=== PATIENT | male | born 1955 | race Caucasian/White ===

== ENCOUNTER 2017-08-19 17:06 | Observation (INO) | payer BC, OTHER ==
--- NOTE | 2017-08-19 17:20 | EDPHY ---
H & P Stated Complaint: RLQ ABD PAIN Time Seen by Provider: 08/19/17 17:20 - Personal History Current Tetanus/Diphtheria Vaccine: Yes - Medical/Surgical History Hx Asthma: No Hx Chronic Respiratory Disease: No Hx Diabetes: No Hx Cardiac Disease: No Hx Renal Disease: No Hx Cirrhosis: No Hx Alcoholism: No Hx HIV/AIDS: No Hx Splenectomy or Spleen Trauma: No Other PMH: none - Social History Smoking Status: Never smoked Constitutional: Initial Vital Signs Temperature (C) 36.3 C 08/19/17 17:08 Heart Rate 122 H 08/19/17 17:08 Respiratory Rate 20 08/19/17 17:08 Blood Pressure 99/73 L 08/19/17 17:08 O2 Sat (%) 97 08/19/17 17:08 O2 Delivery Mode Room Air Allergies/Adverse Reactions: No Known Allergies Allergy (Verified 08/19/17 17:07) Home Medications: Medication Instructions Recorded NK [No Known Home Meds] 05/13/13 Medical Decision Making - Diagnostics Imaging: Discussed imaging studies w/ workers compensation coordinator Radiologist, I viewed and interpreted images myself ED Course/Re-evaluation: CHIEF COMPLAINT: Right lower quadrant abdominal pain HISTORY OF PRESENT ILLNESS: Healthy 62-year-old gentleman who this morning developed abdominal pain. The pain localized to his right lower quadrant throughout the day. He has thrown up twice. He has nausea. It hurts to move around laugh or walk. He denies any abdominal surgeries. Last p. O. This afternoon but he vomited twice since then. He denies fevers chills or systemic illness. He has never had symptoms like this before. REVIEW OF SYSTEMS: A 10 point review of systems was performed and is negative with the exception of the elements mentioned in the history of present illness. PHYSICAL EXAM: HR, BP, O2 Sat, RR. Temp noted General Appearance: Alert, well hydrated, appropriate, and non-toxic appearing. Head: Atraumatic without scalp tenderness or obvious injury Eyes: Pupils equal, round, reactive to light and accommodation, EOMI, no trauma , no injection. Ears: Clear bilaterally, no perforation, normal landmarks Nose: Atraumatic, no rhinorrhea, clear. Throat: There is no erythema or exudates, no lesions, normal tonsils, mucus membranes moist. Neck: Supple, 2+ carotid upstroke, nontender, no lymphadenopathy. Respiratory: No retractions, no distress, no wheezes, and no accessory muscle use. Lungs are clear to auscultation bilaterally. Cardiovascular: Regular rate and rhythm, no murmurs, rubs, or gallops. Bilateral carotid, radial, dorsalis pedis, and posterior tibial pulses intact. Good capillary refill all extremities. Gastrointestinal: Abdomen is soft, significant tenderness in the right lower quadrant at McBurney's point, non-distended, no masses, no rebound, no guarding , no peritoneal signs. Musculoskeletal: Normal active ROM of all extremities, atraumatic. Neurological: Alert, appropriate, and interactive. The patient has normal DTRs and non-focal cranial nerves, motor, sensory, and cerebellar exam. Skin: No rashes, good turgor, no nodules on palpation. Past medical history: None Past surgical history: Patient denies Family history: Noncontributory Social history: Employed, does not abuse tobacco drugs or alcohol, DIAGNOSTICS/PROCEDURES/CRITICAL CARE TIME: Study: [CT of the abdomen and pelvis with IV contrast] Indication: [Right lower quadrant abdominal pain nausea vomiting] Results: CT scan of the abdomen pelvis was obtained. The results of the study are acute appendicitis. The study was read by the radiologist, []. I viewed the images myself on the PACS system. DIFFERENTIAL DIAGNOSIS: The differential diagnosis for the patient's abdominal pain included but was not limited to [appendicitis, cholecystitis, hernias, testicular torsion, gastritis, and urinary tract infection.] MEDICAL DECISION MAKING: This patient as significant right lower quadrant tenderness nausea and vomiting. The pain started as generalized abdominal pain and progressed in intensity. The pain also moved to the right lower quadrant is not localized there. Laboratory studies including CBC, chemistry panel are pending. Additionally I am checking an I-STAT to check his creatinine to perform a contrast CT scan of his abdomen pelvis. CT shows acute appendicitis. 1gm Rocephin and 500mg IV Flagyl ordered. Surgery paged. - Data Points Laboratory Results: Laboratory Results 08/19/17 17:31 18 17:31 18 08/19/17 08/19/17 17:40 17:31 17:31 WBC 14.12 10^3/uL H 10^3/uL (3.80-9.50) RBC 4.74 10^6/uL 10^6/uL (4.40-6.38) Hgb 14.9 g/dL g/dL (13.7-17.5) POC Hgb 15.6 gm/dL gm/dL (13.7-17.5) Hct 42.2 % % (40.0-51.0) POC Hct 46 % % (40-51) MCV 89.0 fL fL (81.5-99.8) MCH 31.4 pg pg (27.9-34.1) MCHC 35.3 g/dL g/dL (32.4-36.7) RDW 14.0 % % (11.5-15.2) Plt Count 310 10^3/uL 10^3/uL (150-400) MPV 10.0 fL fL (8.7-11.7) Neut % (Auto) Not Reported Lymph % (Auto) Not Reported [place] % (Auto) Not Reported Eos % (Auto) Not Reported Baso % (Auto) Not Reported Nucleat RBC Rel Count Not Reported Absolute Neuts (auto) Not Reported Absolute Lymphs (auto) Not Reported Absolute Monos (auto) Not Reported Absolute Eos (auto) Not Reported Absolute Basos (auto) Not Reported Absolute Nucleated RBC Not Reported Immature Gran % Not Reported Seg Neutrophils % 83.8 % % Band Neutrophils % 8.1 % % Lymphocytes % 2.0 % % Monocytes % 6.1 % % Eosinophils % 0 % % Basophils % 0 % % Metamyelocytes % 0 % % Myelocytes % 0 % % Promyelocytes % 0 % % Blast Cells % 0 % % Immature Gran # Not Reported Absolute Seg Neuts 11.83 10^/uL H 10^/uL (1.70-6.50) Absolute Band Neuts 1.14 10^3/uL H 10^3/uL (0.00-0.70) Absolute Lymphocytes 0.28 10^3/uL L 10^3/uL (1.00-3.00) Absolute Monocytes 0.86 10^3/uL H 10^3/uL (0.30-0.80) Absolute Eosinophils 0.00 10^3/uL L 10^3/uL (0.03-0.40) Absolute Basophils 0.00 10^3/uL L 10^3/uL (0.02-0.10) Absolute Metamyelocyte 0.00 10^3/mL 10^3/mL (0.00-0.00) Absolute Myelocytes 0.00 10^3/mL 10^3/mL (0.00-0.00) Absolute Promyelocytes 0.00 10^3/uL 10^3/uL (0.00-0.00) Absolute Plasma Cells 0.00 10^3/uL 10^3/uL (0.00-0.00) RBC/WBC/PLT Morphology NORMAL (NORMAL) Absolute Blast Cells 0.00 10^3/uL 10^3/uL (0.00-0.00) Plasma Cells % 0 % % Platelet Estimate ADEQUATE (ADEQ) POC Sodium 136 mEq/L mEq/L (135-145) Sodium 137 mEq/L mEq/L (135-145) POC Potassium 3.7 mEq/L mEq/L (3.3-5.0) Potassium 4.1 mEq/L mEq/L (3.3-5.0) POC Chloride 103 mEq/L mEq/L (97-110) Chloride 102 mEq/L mEq/L (97-110) Carbon Dioxide 18 mEq/l L mEq/l (22-31) Anion Gap 17 mEq/L H mEq/L (8-16) POC BUN 15 mg/dL mg/dL (7-23) BUN 15 mg/dL mg/dL (7-23) Creatinine 0.8 mg/dL mg/dL (0.7-1.3) POC Creatinine 0.9 mg/dL mg/dL (0.7-1.3) Estimated GFR > 60 Glucose 104 mg/dL H mg/dL (70-100) POC Glucose 114 mg/dL H mg/dL (70-100) Calcium 9.9 mg/dL mg/dL (8.5-10.4) Total Bilirubin 0.8 mg/dL mg/dL (0.1-1.4) Conjugated Bilirubin 0.3 mg/dL mg/dL (0.0-0.5) Unconjugated Bilirubin 0.5 mg/dL mg/dL (0.0-1.1) AST 24 IU/L IU/L (17-59) ALT 42 IU/L IU/L (21-72) Alkaline Phosphatase 60 IU/L IU/L (38-126) Total Protein 7.7 g/dL g/dL (6.3-8.2) Albumin 4.6 g/dL g/dL (3.5-5.0) Lipase 67 IU/L IU/L (23-300) Medications Given: Discontinued Medications Sodium Chloride (Ns) 1,000 mls @ 0 mls/hr IV EDNOW ONE; Wide Open PRN Reason: Protocol Stop: 08/19/17 17:24 Last Admin: 08/19/17 17:44 Dose: 1,000 mls Point of Care Test Results: 08/19/17 17:40 POC Sodium 136 POC Potassium 3.7 POC Chloride 103 POC BUN 15 POC Creatinine 0.9 POC Glucose 114 H Departure - Departure Disposition: [facility] Inpatient Acute Clinical Impression: Acute appendicitis Qualifiers: Acute appendicitis type: with localized peritonitis Qualified Code(s): K35.3 - Acute appendicitis with localized peritonitis Condition: Fair Referrals: JAYLENE GUERRA [Other] - As per Instructions
[2017-08-19] MEDS ORDERED: NS 1,000 ML IV ONE (17:23)
[2017-08-19] MEDS ORDERED: ONDANSETRON 4 MG/2 ML VIAL IVP ONE (17:23)
[2017-08-19] MEDS ORDERED: HYDROmorphONE/DILAUDID 2 MG/ML INJ IVP ONE (17:23)
[2017-08-19 17:49] LABS: PLATELET COUNT 310 10^3/uL (150-400)
[2017-08-19] MEDS ORDERED: IOPAMIDOL (ISOVUE-300) 100 ML BTL ONE (18:12)
[2017-08-19] MEDS ORDERED: LR 1,000 ML IV ONE (19:31)
[2017-08-19] MEDS ORDERED: BUPIVACAINE 0.5% 30 ML SDV ONE (19:37)
[2017-08-19] MEDS ORDERED: EPINEPHrine 1 MG/ML INJ ONE (19:38)
--- NOTE | 2017-08-19 19:56 | POSTOPPROG ---
Post Op Note Date of Operation: 08/19/17 Surgeon: Gregorio Almazan Anesthesiologist: Martín Briones Anesthesia: GET(General Endotracheal) Pre-op Diagnosis: Acute Appy, Umby Post-op Diagnosis: Same Procedure: Lap appy with umby Findings: necrotizing appy, small umby Inf/Abcess present in the surg proc area at time of surgery?: Yes Depth: Organ Space EBL: Minimal Specimen(s): appendix
[2017-08-19] MEDS ORDERED: MIDAZOLAM 2 MG/2 ML VIAL ONE (20:00)
[2017-08-19] MEDS ORDERED: MIDAZOLAM 2 MG/2 ML VIAL IVP ONE (20:02)
--- NOTE | 2017-08-19 20:03 | PDANEPAE ---
ANE Past Medical History - Cardiovascular History Hx Hypertension: No Hx Arrhythmias: No Hx Chest Pain: No Hx Coronary Artery / Peripheral Vascular Disease: Yes Hx CHF / Valvular Disease: No Hx Palpitations: No Cardiovascular History Comment: White coat HTN, mild to moderate CAD - Pulmonary History Hx COPD: No Hx Asthma/Reactive Airway Disease: No Hx Recent Upper Respiratory Infection: No Hx Oxygen in Use at Home: No - Neurologic History Hx Cerebrovascular Accident: No Hx Seizures: No Hx Dementia: No - Endocrine History Hx Diabetes: No Endocrine History Comment: Familial history - Renal History Hx Renal Disorders: No - Liver History Hx Hepatic Disorders: No - Neurological & Psychiatric Hx Hx Neurological and Psychiatric Disorders: No - Cancer History Hx Cancer: No Cancer History Comment: Brother- Prostate CA, Mother- pancreatic cancer - Congenital Disorder History Hx Congenital Disorders: No - GI History Hx Gastrointestinal Disorders: Yes Gastrointestinal History Comment: Gluten allergy - Surgical History Prior Surgeries: Tonsilectomy- 1990, Vasectomy- 1988 ANE Review of Systems Review of Systems: - Exercise capacity METS (RN): 4 METS ANE Patient History - Allergies Allergies/Adverse Reactions: gluten Allergy (Verified 08/19/17 19:48) - Home Medications Home Medications: Coq-10 DAILY 08/19/17 [Last Taken 08/19/17] Magnesium Amino Acid Chelate [Magnesium] 100 mg PO DAILY 08/19/17 [Last Taken ] - NPO status NPO Since - Liquids (Date): 08/19/17 NPO Since - Liquids (Time): 15:00 NPO Since - Solids (Date): 08/19/17 NPO Since - Solids (Time): 10:00 - Anes Hx Anes Hx: no prior problems - Smoking Hx Smoking Status: Never smoked - Alcohol Use Alcohol Use: 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; sober for weeks.) - Family Anes Hx Family Hx Anesthesia Complications: None ANE Labs/Vital Signs - Labs Result Diagrams: 08/19/17 17:31 08/19/17 17:31 - Vital Signs Blood Pressure: 127/87 Heart Rate: 109 Respiratory Rate: 18 O2 Sat (%): 96 Height: 172.72 cm Weight: 65.771 kg ANE Physical Exam - Airway Neck exam: FROM Mallampati Score: Class 2 Mouth exam: normal dental/mouth exam - Pulmonary Pulmonary: no respiratory distress, no rales or rhonchi, clear to auscultation - Cardiovascular Cardiovascular: regular rate and rhythym, no murmur, rub, or gallop - ASA Status ASA Status: II ANE Anesthesia Plan Anesthesia Plan: general endotracheal anesthesia
[2017-08-19] MEDS ORDERED: fentaNYL 100 MCG/2 ML INJ ONE (20:13)
[2017-08-19] MEDS ORDERED: PROPOFOL 200 MG/20 ML VIAL ONE (20:13)
[2017-08-19] MEDS ORDERED: SUGAMMADEX SODIUM 200 MG/2 ML VIAL IVP ONE (20:16)
[2017-08-19] MEDS ORDERED: ROCURONIUM 50 MG/5 ML VIAL ONE (20:16)
[2017-08-19] MEDS ORDERED: DEXAMETHASONE 4 MG/ML VIAL ONE ×2 (20:16→20:17)
[2017-08-19] MEDS ORDERED: KETOROLAC 30 MG/1 ML SDV ONE (20:17)
[2017-08-19] MEDS ORDERED: ONDANSETRON 4 MG/2 ML VIAL ONE (20:17)
[2017-08-19] MEDS ORDERED: LIDOCAINE 2% 5 ML SDV ONE (20:22)
[2017-08-19] MEDS ORDERED: MEPERIDINE 25 MG/0.5 ML AMP IVP PRN (20:37)
[2017-08-19] MEDS ORDERED: NALOXONE HCL 0.4 MG/ML INJ IVP PRN (20:37)
[2017-08-19] MEDS ORDERED: LR 500 ML IV PRN (20:37)
[2017-08-19] MEDS ORDERED: ACETAMINOPHEN 500 MG TAB PO PRN (20:37)
[2017-08-19] MEDS ORDERED: PROMETHAZINE HCL 25 MG/ML INJ IVP PRN (20:37)
[2017-08-19] MEDS ORDERED: oxyCODONE IR 5 MG TAB PO PRN (20:37)
[2017-08-19] MEDS ORDERED: fentaNYL 100 MCG/2 ML INJ IVP PRN (20:37)
[2017-08-19] MEDS ORDERED: ONDANSETRON 4 MG/2 ML VIAL IVP PRN (20:37)
--- NOTE | 2017-08-19 20:39 | GHP ---
[f rep st] PREOP HISTORY AND PHYSICAL DATE OF ADMISSION: 08/19/2017 REASON FOR EVALUATION: Appendicitis. REQUESTING PHYSICIAN: Rc Solares MD. HISTORY OF PRESENT ILLNESS: 62-year-old, healthy male with a 1-day history of diffuse abdominal pain with right lower quadrant localization. Associated nausea and emesis. Bowel movements have been soft without diarrhea. No voiding complaints. No prior history of similar complaints. Colonoscopy is up to date 5 years ago. Notable for diverticulosis only. Symptoms continued to worsen throughout the day at work, for which he requested his colleague drive him home because of unrelenting symptoms. He ultimately presented to the emergency room for further workup. ED workup including a CT scan and laboratory studies disclosed a leukocytosis of 14. CT showed evidence of multiple appendicoliths and appendicitis. Surgeon has been requested for further recommendations. PAST MEDICAL HISTORY: Hypertension. PAST SURGICAL HISTORY: None. MEDICATIONS: None. ALLERGIES: No known drug allergies. SOCIAL HISTORY: Notable for prior alcohol. None x7 months. No tobacco. He works as an windows infrastructure engineer for [employer] FAMILY HISTORY: Noncontributory. REVIEW OF SYSTEMS: Notable for above GI complaints only. PHYSICAL EXAMINATION: VITAL SIGNS: Temperature 36.3, blood pressure 100/70, pulse 120 on arrival, respirations 20. GENERAL: The patient is currently alert , appropriate, comfortable with a blood pressure in the 90s after receiving pain analgesics. Anicteric. Flushed in appearance. No cervical or supraclavicular lymphadenopathy. HEART: Regular without murmurs. LUNGS: Clear bilaterally. ABDOMEN: Small reducible umbilical hernia. Soft with significant right-sided tenderness with notable guarding. Negative Rovsing sign. Negative obturator sign. EXTREMITIES: Without edema. SKIN: Without rashes. NEUROLOGIC: Alert and appropriate. LABORATORY DATA: White count 14, hemoglobin 15, platelets 310. Electrolytes within reference range. CT images were directly reviewed on PACS. Notable thickened appendix with multiple appendicoliths. No free air. No abscess. No other significant pathology noted. IMPRESSION: Acute appendicitis, umbilical hernia. PLAN: Laparoscopic appendectomy. Surgical risks and benefits were explained to the patient in detail about bleeding, infection, open conversion, as well as alternative diagnoses. All questions were answered. He desires to proceed. We will proceed with concurrent umbilical herniorrhaphy as well. /[id number]/MODL MTDD
--- NOTE | 2017-08-19 22:04 | POSTANESTH ---
Post Anesthetic Evaluation Cardiovascular Status: Normal, Stable, Similar to Pre-Op Cond Respiratory Status: Normal, Stable, Similar to Pre-op Cond. Level of Consciousness/Mental Status: Can Participate in Eval, Alert and Oriented Pain Control: Adequate, Prn Tx Ordered Nausea/Vomiting Control: Adequate, Prn Tx Ordered Complications Possibly Related to Anesthesia: None Noted
--- NOTE | 2017-08-20 06:59 | SOAPPROG ---
SOAP Progress Note Assessment/Plan: Assessment:no complaints. min pain. no nausea or vomiting. avss. comfortable. abd soft. incis clean. doing well. home today. Plan: 08/20/17 06:58 Objective: Vital Signs Temp Pulse Resp BP Pulse Ox 36.6 C 81 16 105/72 95 08/20/17 01:00 08/20/17 01:00 08/20/17 01:00 08/20/17 01:00 08/20/17 01:00 08/19/17 08/20/17 08/21/17 05:59 05:59 05:59 Intake Total 1525 Output Total 10 Balance 1515 ICD10 Worksheet Patient Problems: Problems Problem Status Onset Acute appendicitis Acute
[2017-08-20 07:23] VITALS: BP 107/65
--- NOTE | 2017-08-20 08:01 | GOP ---
[f rep st] OPERATIVE REPORT DATE OF OPERATION: 08/19/2017 SURGEON: Gregorio Almazan MD ANESTHESIA: General. ANESTHESIOLOGIST: Vinny Briones MD. PREOPERATIVE DIAGNOSIS: 1. Acute appendicitis. 2. Umbilical hernia. POSTOPERATIVE DIAGNOSIS: 1. Acute appendicitis. 2. Umbilical hernia. PROCEDURE PERFORMED: 1. Laparoscopic appendectomy. 2. Umbilical hernia repair. FINDINGS: INDICATIONS: This is a 62-year-old male with acute appendicitis he is undergoing a laparoscopic appe ndectomy. Risks and benefits were explained including bleeding, infection, open conversion, as well as alternative diagnoses. All questions were answered. He desires to proceed. DESCRIPTION OF PROCEDURE: General anesthesia was induced. The abdomen was pre-injected with 0.5% Ma rcaine with epinephrine. A curvilinear infraumbilical incision was created. The umbilical stalk was transected at its fascial expansion. A 1.5 cm umbilical defect was present. A 10 mm trocar was kevan octavio under direct visualization. The abdomen was insufflated to 15 mmHg. Two additional left lower q uadrant 5 mm ports were inserted. The appendix was acutely thickened and necrotizing in appearance. There was no suppuration or perforation. The mesoappendix was divided with Harmonic Scalpel. The b ase was transected flush with the cecum with an endoscopic KENISHA stapler. The specimen was brought thr ough umbilical port site intact using EndoCatch pouch. Satisfactory hemostasis was assured. Trocars were removed under direct visualization. The umbilical defect was closed transversely with a runnin g Vicryl suture. The umbilicus was re-tacked to the abdominal wall fascia. The wounds were closed w ith absorbable suture by Dermabond. The patient was taken to recovery extubated uneventfully. /[id number]/MODL
== END 2017-08-20 08:11 | disposition home or self-care (01) ==
LOC: F3E 21:50
PROVIDERS: ADMIT Surgery; ATTEND Surgery
DX: K35.80 Unspecified acute appendicitis (principal); K42.9 Umbilical hernia without obstruction or gangrene; I25.10 Atherosclerotic heart disease of native coronary artery without angina pectoris; F45.8 Other somatoform disorders; Z80.8 Family history of malignant neoplasm of other organs or systems; Z80.42 Family history of malignant neoplasm of prostate; Z91.018 Allergy to other foods
CPT/HCPCS: 44970; 49585; 74177; G0378; 82947-QW; 96365; J0171; J0696; J1100; J1885; J2250; J2405; J2704; J3010; Q9967